=== PATIENT | male | born 1990 | race Caucasian/White ===

== ENCOUNTER 2021-03-28 00:11 | Emergency (ER) | payer OTHER ==
[~2021-03-28] VITALS: Ht 167.6 cm; Wt 86.2 kg
[2021-03-28] MEDS ORDERED: OMEPRAZOLE 20 M20 M1 PO (00:29)
[2021-03-28] MEDS ORDERED: DOXYCYCLINE 10100 M2 PO (00:29)
[2021-03-28] MEDS ORDERED: HYDROXYZINE HCL25 M2 PO (02:55)
[2021-03-28] MEDS ORDERED: CARAFATE 1 GM TA1 GM PO (02:55)
[2021-03-28 03:01] VITALS: BP 140/67
== END 2021-03-28 03:02 | disposition home or self-care (01) ==
LOC: M.ERS 00:11
DX: F41.9 Anxiety disorder, unspecified (principal); K21.9 Gastro-esophageal reflux disease without esophagitis; Z79.899 Other long term (current) drug therapy; Z79.2 Long term (current) use of antibiotics